=== PATIENT | female | born 1980 | race African-American/Black ===

== ENCOUNTER 2018-09-08 11:34 | Emergency (ER) | payer MEDICAID ==
[~2018-09-08] VITALS: Ht 157.5 cm; Wt 68.0 kg
[~2018-09-08 11:34] MED LIST: DIFLUCAN150 MG PO; FLAGYL500 MG ORAL; MONISTAT TOPIC; NKM; PREDNISONE20 MG ORAL
[2018-09-08 11:40] VITALS: BP 119/71
--- NOTE | 2018-09-08 11:40 | NUR ---
ED Nurse Note: Patient walked into ED c/o vaginal itching, states that it started yesterday, denies any burning sensation when peeing however states that her vagina "feels different" patient is alert and oriented x4, ambulatory with a steady gait, VSS
--- NOTE | 2018-09-08 12:38 | Emergency Room Report ---
History of Present Illness General Chief Complaint: General Complaint Source: Patient, Medical Record Present Illness HPI 38-year-old female presents to the emergency department complaining of vaginal discharge, dysuria, itching and malodor x 4 days. pt. reports onset after having intercourse with her partner which she later found to have an rx for antibiotics for which he did not fill. denies abdominal pain, N/V/F/C. denies constipation or diarrhea. denies hematuria or urinary frequency or suspicion for . pt. denies genital lesions, rashes or swollen tender lymph nodes. Allergies: Coded Allergies: No Known Allergies (Unverified , 08/07/12) Patient History Past Medical History: see triage record Past Surgical History: none Pertinent Family History: none Last Menstrual Period: 07/21/18 & 08/13/18 Now: No Reviewed Nursing Documentation: PMH: Agreed; PSxH: Agreed Nursing Documentation-PMH Past Medical History: No History, Except For Hx Asthma: Yes Review of Systems All Other Systems: negative except mentioned in HPI Physical Exam Vital Signs Date Time Temp Pulse Resp B/P (MAP) Pulse Ox O2 Delivery O2 Flow Rate FiO2 09/08/18 11:37 99.0 68 17 119/71 97 Room Air Sp02 EP Interpretation: reviewed, normal General Appearance: no apparent distress, alert, GCS 15, non-toxic Head: normocephalic, atraumatic Eyes: bilateral eye normal inspection, bilateral eye PERRL ENT: hearing grossly normal, normal voice Neck: full range of motion Respiratory: chest non-tender, lungs clear, normal breath sounds, no respiratory distress, speaking full sentences Cardiovascular #1: regular rate, rhythm Genitourinary: normal inspection, no CVA tenderness, adnexa normal, cervix normal, ext genitalia/vag normal, other - thin white vaginal d/c noted, normal cervix, no CMT. Musculoskeletal: back normal, gait/station normal, normal range of motion, non- tender Neurologic: alert, oriented x3, responsive, motor strength/tone normal, sensory intact, speech normal, grossly normal Psychiatric: judgement/insight normal Skin: normal color, no rash, warm/dry, well hydrated Medical Decision Making PA Attestation Dr. graham is my supervising Physician whom patient management has been discussed with. Diagnostic Impression: Primary Impression: VAGINITIS Additional Impression: ACUTE ASTHMA EXACERBATION ER Course 38-year-old female presents to the emergency department complaining of vaginal discharge, dysuria, itching and malodor x 4 days. pt. reports onset after having intercourse with her partner which she later found to have an rx for antibiotics for which he did not fill. denies abdominal pain, N/V/F/C. denies constipation or diarrhea. denies hematuria or urinary frequency or suspicion for . pt. denies genital lesions, rashes or swollen tender lymph nodes. Ddx considered but are not limited to UTi , Pyelo, STI, Stone, Cystitis, vaginal laceration, vaginitis. Vital signs: are WNL, pt. is afebrile H& PE are most consistent with: Vaginitis ORDERS: - UA labs are attached: occasional bacteria no inflammatory marker elevation. - Wet Mount :few bacteria -Urine Hcg: Negative ED INTERVENTIONS: Rocephin IM -Azithromycin PO DISCHARGE: At this time pt. is stable for d/c to home. Will provide printed patient care instructions, and any necessary prescriptions. Care plan and follow up instructions have been discussed with the patient prior to discharge. discussed with the patient prior to discharge. Labs Test 09/08/18 11:42 Urine Color Pale yellow Urine Appearance Clear Urine pH 5 (4.5-8.0) Urine Specific [place] 1.020 (1.005-1.035) Urine Protein Negative (NEGATIVE) Urine Glucose (UA) Negative (NEGATIVE) Urine Ketones 2+ (NEGATIVE) Urine Blood 2+ (NEGATIVE) Urine Nitrite Negative (NEGATIVE) Urine Bilirubin Negative (NEGATIVE) Urine Urobilinogen Normal MG/DL (0.0-1.0) Urine Leukocyte Esterase 1+ (NEGATIVE) Urine RBC 5-10 /HPF (0 - 2) Urine WBC 0-2 /HPF (0 - 2) Urine Squamous Epithelial Cells Moderate /LPF (NONE/OCC) Urine Bacteria Occasional /HPF (NONE) Urine Mucus Moderate /LPF (NONE/OCC) Urine HCG, Qualitative Negative (NEGATIVE) Last Vital Signs Date Time Temp Pulse Resp B/P (MAP) Pulse Ox O2 Delivery O2 Flow Rate FiO2 09/08/18 11:40 99.0 70 17 119/71 97 Room Air Status: improved Disposition: HOME, SELF-CARE Condition: Stable Scripts Albuterol Sulfate* (ALBUTEROL SULFATE MDI*) 8.5 Gm Hfa.aer.ad 2 PUFF INH Q4H, #1 INH 0 Refills Prov: Maddy Valdivia 09/08/18 Metronidazole* (FLAGYL*) 500 Mg Tablet 500 MG ORAL BID for 5 Days, #10 TAB Prov: Maddy Valdivia 09/08/18 Referrals: NON PHYSICIAN (PCP) Patient Instructions: Vaginitis, [id number] Additional Instructions: Take medications as directed. Follow up with a Primary Care Provider in 3-5 days, even if your symptoms have resolved. --Please review list of primary care clinics, if you do not already have a primary care provider Return sooner to ED if new symptoms occur, or current symptoms become worse. - Please note that this Emergency Department Report was dictated using [employer] technology software, occasionally this can lead to erroneous entry secondary to interpretation by the dictation equipment. Maddy Valdivia Sep 08, 2018 12:38
[2018-09-08 12:41] LABS: APPEARANCE,URINE CLEAR; BILIRUBIN, URINE NEGATIVE (NEGATIVE); COLOR,URINE PALE YELLOW; GLUCOSE, URINE (UA) NEGATIVE (NEGATIVE); KETONES,URINE 2+ (NEGATIVE); LEUKOCYTE ESTERASE ,URINE 1+ (NEGATIVE); NITRITE,URINE NEGATIVE (NEGATIVE); PH,URINE 5 (4.5-8.0); PROTEIN,URINE NEGATIVE (NEGATIVE); UROBILINOGEN,URINE NORMAL MG/DL (0.0-1.0)
[2018-09-08] MEDS ORDERED: Azithromycin 250mg tab ORAL ONE (12:45)
[2018-09-08] MEDS ORDERED: Lidocaine 1% MPF 10mg/ml 5ml INJ ONE (12:45)
[2018-09-08] MEDS ORDERED: METRONIDAZOLE500 MG ORAL (13:08)
[2018-09-08] MEDS ORDERED: ALBUTEROL SULF8.5 GM INH (13:10)
[2018-09-08 13:16] VITALS: BP 125/73
--- NOTE | 2018-09-08 13:16 | NUR ---
ER DISCHARGE NOTE: Patient is cleared to be discharged per ERMD, pt is aox4, on room air, with stable vital signs. pt was given dc and prescription instructions, pt was able to verbalize understanding, pt id band removed without complications. pt is able to ambulate with steady gait. pt took all belongings.
== END 2018-09-08 13:17 | disposition home or self-care (01) ==
LOC: EMR 12:10
DX: N76.0 Acute vaginitis (principal); J45.901 Unspecified asthma with (acute) exacerbation
CPT/HCPCS: 81003; 81025; 87210; 96372; 96374; 99284; J0696; Q0144

== ENCOUNTER 2020-08-04 20:21 | Emergency (ER) | payer MEDICAID ==
[~2020-08-04] VITALS: Ht 157.5 cm; Wt 70.3 kg
[~2020-08-04 20:21] MED LIST changes: +ALBUTEROL SULF8.5 GM INH; +METRONIDAZOLE500 MG ORAL
[2020-08-04 20:38] VITALS: BP 115/70
[2020-08-04] MEDS ORDERED: cefTRIAXone 500mg Inj IM ONE (20:45)
[2020-08-04] MEDS ORDERED: Lidocaine 1% MPF 10mg/ml 5ml INJ ONE (20:45)
[2020-08-04] MEDS ORDERED: Doxycycline Monohydrate 100mg ORAL ONE (20:45)
[2020-08-04] MEDS ORDERED: DOXYCYCLINE MO100 MG ORAL (20:53)
[2020-08-04] MEDS ORDERED: METRONIDAZOLE500 MG ORAL (20:53)
--- NOTE | 2020-08-07 06:48 | Emergency Room Report ---
History of Present Illness General Chief Complaint: Vaginal Source: Patient Present Illness HPI 40-year-old female presents for evaluation. States that she has had unprotected sex and for the last few days has noted some vaginal irritation and discharge. States that she is had previous treatment for presumed STI in the past. Denies dysuria or hematuria. Denies pain. No other aggravating relieving factors. Denies any other associated symptoms Allergies: Coded Allergies: No Known Allergies (Unverified , 08/07/12) COVID-19 Screening Contact w/high risk pt: No Experienced COVID-19 symptoms?: No COVID-19 Testing performed LOG SKIDDER: No Patient History Past Medical History: asthma Past Surgical History: none Pertinent Family History: none Social History: Denies: smoking, alcohol use, drug use Last Menstrual Period: 07/18/2020 Now: No Immunizations: UTD Reviewed Nursing Documentation: PMH: Agreed; PSxH: Agreed Nursing Documentation-PMH Past Medical History: No Stated History Hx Asthma: Yes Review of Systems All Other Systems: negative except mentioned in HPI Physical Exam Vital Signs Date Time Temp Pulse Resp B/P (MAP) Pulse Ox O2 Delivery O2 Flow Rate FiO2 08/04/20 20:25 98.6 73 18 111/64 (80) 100 Room Air Sp02 EP Interpretation: reviewed, normal General Appearance: no apparent distress, alert, GCS 15, non-toxic Head: normocephalic, atraumatic Eyes: bilateral eye normal inspection, bilateral eye PERRL ENT: hearing grossly normal, normal pharynx, no angioedema, normal voice Neck: full range of motion, supple/symm/no masses Respiratory: chest non-tender, lungs clear, normal breath sounds, speaking full sentences Cardiovascular #1: regular rate, rhythm, no edema Cardiovascular #2: 2+ carotid (R), 2+ carotid (L), 2+ radial (R), 2+ radial (L), 2+ dorsalis pedis (R), 2+ dorsalis pedis (L) Gastrointestinal: normal bowel sounds, non tender, soft, non-distended, no guarding, no rebound Rectal: deferred Genitourinary: normal inspection, no CVA tenderness Musculoskeletal: back normal, normal range of motion, gait/station normal, non- tender Neurologic: alert, motor strength/tone normal, oriented x3, sensory intact, responsive, speech normal Psychiatric: judgement/insight normal, memory normal, mood/affect normal, no suicidal/homicidal ideation Reflexes: 3+ bicep (R), 3+ bicep (L), 3+ tricep (R), 3+ tricep (L), 3+ knee (R), 3+ knee (L) Lymphatic: no adenopathy Medical Decision Making Diagnostic Impression: Primary Impression: VAGINITIS ER Course Hospital Course 40-year-old female presents with vaginal discharge. History of unprotected sex Differential diagnoses include: trichimonas, gonorrhea, chlamydia Clinical course Patient placed on stretcher. After initial history physical exam reveals a female in no acute distress. Physical exam unremarkable. Due to EMR. Patient had been here previously in for similar presentation. Also tested positive for trichomonas at that time. I discussed with patient. She wishes to be treated now. Given Rocephin and doxycycline in ED. Declined wet mount. Will be treated empirically with Flagyl. Safe for discharge with close outpatient follow-up. I will provide STD clinic referrals Diagnosis - vaginitis Stable and discharged home with prescriptions for Rx doxycycline, Flagyl. instructed to followup with PMD. Return to ED if symptoms recur or worsen Last Vital Signs Date Time Temp Pulse Resp B/P (MAP) Pulse Ox O2 Delivery O2 Flow Rate FiO2 08/04/20 20:57 98.2 79 17 129/88 Room Air 08/04/20 20:38 100 Status: improved Disposition: HOME, SELF-CARE Condition: Improved Scripts Doxycycline Monohydrate* (DOXYCYCLINE MONOHYDRATE*) 100 Mg Capsule 100 MG ORAL Q12H, #14 CAP 0 Refills Prov: Asaf Goff MD 08/04/20 Metronidazole* (FLAGYL*) 500 Mg Tablet 500 MG ORAL BID for 7 Days, #14 TAB Prov: Asaf Goff MD 08/04/20 Referrals: NOT CHOSEN IPA/,REFERRING (PCP) [facility] Patient Instructions: Cervicitis, [id number] Asaf Goff MD Aug 07, 2020 06:48
== END 2020-08-04 21:15 | disposition home or self-care (01) ==
LOC: EMR 21:05
DX: N76.0 Acute vaginitis (principal)
CPT/HCPCS: 96372; J0696; Z7502; 99283